=== PATIENT | male | born 1965 | race Two or more races ===

== ENCOUNTER 2023-05-26 23:36 | Inpatient (IN) | payer MEDICAID ==
[~2023-05-26] VITALS: Ht 167.6 cm; Wt 108.2 kg
[2023-05-26] MEDS: ROCURONIUM 10MG/ML 10ML VIAL IV ONE ×2 (23:46→23:47)
[2023-05-26] MEDS: ETOMIDATE (2MG/ML) 20ML VIAL IV ONE (23:46)
[2023-05-26] MEDS: PROPOFOL 100 ML IV ONE (23:48)
[2023-05-26 23:50] VITALS: BP 130/77; PULSE 90; RESP 18; O2SAT 98
[2023-05-26] MEDS: PROPOFOL 100 ML IV SCH (23:50)
[2023-05-27] VITALS (85 sets, daily range): BP systolic 82–122; BP diastolic 39–71; PULSE 72–90; RESP 13–22; TEMP 97.8–99.7; O2SAT 76–100
[2023-05-27] MEDS: fentaNYL CITRATE 5 ML ONE (01:09)
[2023-05-27 01:10] LABS: Alanine Aminotransferase 53 U/L (7-40); Albumin 4.3 g/dL (3.2-4.8); Alkaline Phosphatase 106 U/L (46-116); Anion Gap 11 (5-15); Aspartate Aminotransferase 89 U/L (13-40); BUN/Creatinine Ratio 11.8 (10.0-20.0); Basophils # (auto) 0.1 10 ^3/uL (0-0.2); Basophils % (auto) 0.3 % (0.0-2.0); Bilirubin, Total 0.5 mg/dL (0.2-1.0); Blood Urea Nitrogen 17 mg/dL (9-23); Calcium 9.5 mg/dL (8.7-10.4); Carbon Dioxide 22 mmol/L (20-30); Chloride 106 mmol/L (98-107); Eosinophils # (auto) 0.1 10 ^3/uL (0-0.8); Eosinophils % (auto) 0.2 % (0.0-7.0); Glucose 329 mg/dL (74-106); Hematocrit 46.2 % (41.0-53.0); Hemoglobin 14.9 g/dL (13.5-17.5); Lymphocytes # (auto) 1.3 10 ^3/uL (0.4-5.4); Lymphocytes % (auto) 5.5 % (10.0-50.0); Mean Corpuscular Hemoglobin 30.7 pg (28.0-32.0); Mean Corpuscular Hgb Conc. 32.2 g/dL (32.0-36.0); Mean Corpuscular Volume 95.2 fL (80.0-100.0); Monocytes # (auto) 1.3 10 ^3/uL (0-1.3); Monocytes % (auto) 5.3 % (0.0-12.0); Neutrophils # (auto) 21.1 10 ^3/uL (1.6-8.6); Neutrophils % (auto) 88.7 % (37.0-80.0); Nucleated Red Blood Cells % 0.1 %; Potassium 4.5 mmol/L (3.5-5.1); Red Blood Cells 4.85 10^6/uL (4.5-5.90); Red Cell Distribution Width 13.1 % (11.8-14.3); Sodium 139 mmol/L (136-145); Total Protein 7.1 g/dL (5.7-8.2); White Blood Cell 23.9 10^3/uL (4.4-10.8)
[2023-05-27 01:10] LABS: Urine Bacteria FEW /hpf (None Seen); Urine Blood TRACE /uL (Negative); Urine Clarity Clear (Clear); Urine Color Yellow (Yellow); Urine Hyaline Cast MOD /lpf (0 - 2); Urine Protein, UAD 1+ (Negative); Urine Specific Gravity 1.016 (1.001-1.035); Urine Sperm PRESENT /hpf (None Seen); Urine Urobilinogen Normal (Negative); Urine WBC 4 /hpf (0 - 3); Urine pH 5.5 (5.0-9.0)
[2023-05-27] MEDS: MIDAZOLAM DRIP 50 mg/50mL 50 ML IV ONE (01:10)
[2023-05-27] MEDS: fentaNYL CITRATE 100 MCG/2 ML VL IV ONE (01:10)
[2023-05-27 01:15] LABS: Lactic Acid w/Reflex 4.8 mmol/L (0.4-2.0)
[2023-05-27] MEDS: MIDAZOLAM DRIP 50 mg/50mL 50 ML IV SCH (01:15)
[2023-05-27] MEDS: MIDAZOLAM HCL 2MG/2ML 2ml VIAL (1mg/ml) IV ONE (01:15)
[2023-05-27 01:23] LABS: INR 1.06 (0.9-1.15); Partial Thromboplastin Time 20.8 SEC (24.5-34.5); Prothrombin Time 11.1 sec (9.3-11.8)
[2023-05-27 01:25] LABS: Blood Alcohol < 3.0 mg/dL (<10)
[2023-05-27] MEDS ORDERED: PIPERACILLIN-TAZOB 3.375GM 100 ML IV ONE (01:30)
[2023-05-27 01:44] LABS: Base Excess -6.4 mmol/L (-2.0-2.0)
[2023-05-27 01:44] LABS: Amphetamine Screen, Urine Pos (NEGATIVE); Barbiturate Scree,Urine Neg (NEGATIVE); Benzodiazephine Screen, Urine Neg (NEGATIVE); Cannabinoid Screen, Urine Pos (NEGATIVE); Cocaine Screen, Urine Neg (NEGATIVE); Opiate Scree,Urine Neg (NEGATIVE); Phencyclidine Screen, Urine Neg (NEGATIVE)
[2023-05-27] MEDS: PIPERACILLIN-TAZO 4.5GM 100 ML IV ONE (03:20)
[2023-05-27] MEDS ORDERED: ACETAMINOPHEN 650 MG RECT SUPP PR PRN (04:00)
[2023-05-27] MEDS: SODIUM CHLORIDE 0.9% 1,000 ML IV SCH (04:00)
[2023-05-27] MEDS: ACCU-CHEK COMFORT CURVE STRIP VI SCH (04:00)
[2023-05-27] MEDS ORDERED: ONDANSETRON HCL 4 MG/2 ML VIAL IV PRN (04:00)
[2023-05-27] MEDS ORDERED: NITROGLYCERIN 0.4 MG SL TAB SL PRN (04:00)
[2023-05-27] MEDS ORDERED: DEXTROSE (50%) 50ML SYRG IV PRN (04:00)
[2023-05-27] MEDS: InsuLIN REG 1unit/0.01ml Soln (100units/ml) SC SCH (04:00)
[2023-05-27 05:18] LABS: Basophils # (auto) 0 10 ^3/uL (0-0.2); Basophils % (auto) 0.2 % (0.0-2.0); Eosinophils # (auto) 0 10 ^3/uL (0-0.8); Eosinophils % (auto) 0.1 % (0.0-7.0); Hematocrit 42.4 % (41.0-53.0); Hemoglobin 13.9 g/dL (13.5-17.5); Lymphocytes # (auto) 0.9 10 ^3/uL (0.4-5.4); Lymphocytes % (auto) 5.6 % (10.0-50.0); Mean Corpuscular Hemoglobin 30.5 pg (28.0-32.0); Mean Corpuscular Hgb Conc. 32.8 g/dL (32.0-36.0); Mean Corpuscular Volume 92.9 fL (80.0-100.0); Neutrophils # (auto) 14.1 10 ^3/uL (1.6-8.6); Neutrophils % (auto) 88.1 % (37.0-80.0); Red Blood Cells 4.57 10^6/uL (4.5-5.90); White Blood Cell 16.1 10^3/uL (4.4-10.8)
[2023-05-27 05:39] LABS: Alanine Aminotransferase 49 U/L (7-40); Alkaline Phosphatase 78 U/L (46-116); Anion Gap 6 (5-15); BUN/Creatinine Ratio 21.1 (10.0-20.0); Carbon Dioxide 25 mmol/L (20-30); Chloride 108 mmol/L (98-107); Potassium 4.9 mmol/L (3.5-5.1); Sodium 139 mmol/L (136-145)
[2023-05-27 05:41] LABS: Aspartate Aminotransferase 72 U/L (13-40); Bilirubin, Total 0.6 mg/dL (0.2-1.0); Glucose 151 mg/dL (74-106); Total Protein 6.3 g/dL (5.7-8.2)
[2023-05-27 05:42] LABS: Blood Urea Nitrogen 28 mg/dL (9-23)
[2023-05-27 07:18] LABS: Base Excess -2.9 mmol/L (-2.0-2.0)
[2023-05-27] MEDS: cefTRIAXone 1GM/50ML D5W 50 ML IV SCH (09:30)
[2023-05-27] MEDS: NOREPINEPHRINE 8 MG/250ML KIT 250 ML IV SCH (09:45)
[2023-05-27] MEDS: AZITHROMYCIN 500MG/ 250ML 250 ML IV SCH (09:56)
[2023-05-27] MEDS: HEPARIN SODIUM (PORCINE) 5000 UNITS/ML 1ML VIAL SC SCH (09:58)
[2023-05-27] MEDS ORDERED: CLINIMIX PER PHARMACY 0 ML IV SCH (17:30)
[2023-05-27 18:38] LABS: Magnesium 2.2 mg/dL (1.6-2.6)
[2023-05-27 18:53] LABS: Phosphorus 3.6 mg/dL (2.4-5.1)
[2023-05-27] MEDS: AMINO ACID INFUSION IN D10W 1,000 ML IV SCH (19:50)
[2023-05-28] VITALS (99 sets, daily range): BP systolic 92–129; BP diastolic 48–76; PULSE 62–78; RESP 11–22; TEMP 98.4–100; O2SAT 95–100
[2023-05-28 03:48] LABS: Anion Gap 5 (5-15); Carbon Dioxide 22 mmol/L (20-30); Chloride 112 mmol/L (98-107); Potassium 3.7 mmol/L (3.5-5.1); Sodium 139 mmol/L (136-145)
[2023-05-28 03:49] LABS: Calcium 7.8 mg/dL (8.7-10.4)
[2023-05-28 03:52] LABS: Alkaline Phosphatase 51 U/L (46-116); Basophils # (auto) 0 10 ^3/uL (0-0.2); Basophils % (auto) 0.4 % (0.0-2.0); Eosinophils # (auto) 0.1 10 ^3/uL (0-0.8); Eosinophils % (auto) 0.7 % (0.0-7.0); Hematocrit 37.8 % (41.0-53.0); Hemoglobin 12.4 g/dL (13.5-17.5); Lymphocytes # (auto) 1.3 10 ^3/uL (0.4-5.4); Mean Corpuscular Hgb Conc. 32.8 g/dL (32.0-36.0); Mean Corpuscular Volume 94.7 fL (80.0-100.0); Monocytes # (auto) 0.7 10 ^3/uL (0-1.3); Monocytes % (auto) 6.9 % (0.0-12.0); Neutrophils # (auto) 8.2 10 ^3/uL (1.6-8.6); Red Blood Cells 3.99 10^6/uL (4.5-5.90); White Blood Cell 10.3 10^3/uL (4.4-10.8)
[2023-05-28 03:54] LABS: BUN/Creatinine Ratio 27.3 (10.0-20.0); Blood Urea Nitrogen 21 mg/dL (9-23); Glucose 122 mg/dL (74-106); Magnesium 1.9 mg/dL (1.6-2.6)
[2023-05-28 03:55] LABS: Albumin 3.1 g/dL (3.2-4.8); Aspartate Aminotransferase 23 U/L (13-40)
[2023-05-28 03:56] LABS: Total Protein 5.2 g/dL (5.7-8.2)
[2023-05-28 04:22] LABS: Alanine Aminotransferase 29 U/L (7-40)
[2023-05-28 04:59] LABS: Phosphorus 2.5 mg/dL (2.4-5.1)
[2023-05-28] MEDS: cefTRIAXone 1GM/50ML D5W 50 ML IV SCH (08:47)
[2023-05-28] MEDS ORDERED: HEPARIN DRIP/D5W 100UNITS/ML 250 ML IV SCH (13:15)
[2023-05-28] MEDS: LIDOCAINE 1% (LOCAL ANESTH.) PF 5ml SDV ID ONE (14:20)
[2023-05-28] MEDS: HEPARIN SODIUM (PORCINE) 5000 UNITS/ML 1ML VIAL IV ONE (15:31)
[2023-05-28] MEDS: HEPARIN DRIP/D5W 100UNITS/ML 250 ML IV SCH (15:34)
[2023-05-28 15:57] LABS: Basophils # (auto) 0 10 ^3/uL (0-0.2); Basophils % (auto) 0.3 % (0.0-2.0); Eosinophils # (auto) 0.1 10 ^3/uL (0-0.8); Eosinophils % (auto) 0.7 % (0.0-7.0); Hematocrit 41.2 % (41.0-53.0); Hemoglobin 13.1 g/dL (13.5-17.5); Lymphocytes # (auto) 1.6 10 ^3/uL (0.4-5.4); Mean Corpuscular Hemoglobin 30.4 pg (28.0-32.0); Mean Corpuscular Hgb Conc. 31.7 g/dL (32.0-36.0); Mean Corpuscular Volume 95.8 fL (80.0-100.0); Monocytes # (auto) 0.8 10 ^3/uL (0-1.3); Monocytes % (auto) 7.2 % (0.0-12.0); Neutrophils # (auto) 8.7 10 ^3/uL (1.6-8.6); Neutrophils % (auto) 77.8 % (37.0-80.0); Nucleated Red Blood Cells % 0.1 %; Red Cell Distribution Width 13.3 % (11.8-14.3); White Blood Cell 11.1 10^3/uL (4.4-10.8)
[2023-05-28 16:49] LABS: INR 1.06 (0.9-1.15); Partial Thromboplastin Time 27.4 SEC (24.5-34.5); Prothrombin Time 11.1 sec (9.3-11.8)
[2023-05-28] MEDS: SODIUM CHLOR 0.9% PF (SALINE LOCK) 10ML VIAL/SYR IV SCH (22:00)
[2023-05-28 22:21] LABS: INR 1.09 (0.9-1.15); Prothrombin Time 11.4 sec (9.3-11.8)
[2023-05-28 22:46] LABS: Partial Thromboplastin Time 105.6 SEC (24.5-34.5)
[2023-05-29] VITALS (107 sets, daily range): BP systolic 103–147; BP diastolic 38–89; PULSE 56–105; RESP 11–26; TEMP 97.5–99.3; O2SAT 90–100
[2023-05-29] MEDS: HEPARIN DRIP/D5W 100UNITS/ML 250 ML IV SCH
[2023-05-29 04:28] LABS: Alanine Aminotransferase 22 U/L (7-40); Albumin 3.5 g/dL (3.2-4.8); Alkaline Phosphatase 53 U/L (46-116); Anion Gap 5 (5-15); Aspartate Aminotransferase 14 U/L (13-40); BUN/Creatinine Ratio 38.2 (10.0-20.0); Blood Urea Nitrogen 26 mg/dL (9-23); Calcium 8.6 mg/dL (8.7-10.4); Carbon Dioxide 26 mmol/L (20-30); Chloride 105 mmol/L (98-107); Glucose 124 mg/dL (74-106); Phosphorus 2.4 mg/dL (2.4-5.1); Potassium 3.8 mmol/L (3.5-5.1); Sodium 136 mmol/L (136-145)
[2023-05-29 04:29] LABS: Bilirubin, Total 0.6 mg/dL (0.2-1.0); Total Protein 5.9 g/dL (5.7-8.2)
[2023-05-29 04:46] LABS: Triglycerides 100 mg/dL (< 150)
[2023-05-29 06:55] LABS: INR 1.06 (0.9-1.15); Prothrombin Time 11.1 sec (9.3-11.8)
[2023-05-29 07:57] LABS: Basophils # (auto) 0 10 ^3/uL (0-0.2); Basophils % (auto) 0.4 % (0.0-2.0); Eosinophils # (auto) 0.1 10 ^3/uL (0-0.8); Eosinophils % (auto) 1.3 % (0.0-7.0); Hematocrit 38.2 % (41.0-53.0); Hemoglobin 12.7 g/dL (13.5-17.5); Lymphocytes # (auto) 1.8 10 ^3/uL (0.4-5.4); Lymphocytes % (auto) 17.9 % (10.0-50.0); Mean Corpuscular Hgb Conc. 33.3 g/dL (32.0-36.0); Monocytes # (auto) 0.9 10 ^3/uL (0-1.3); Monocytes % (auto) 8.5 % (0.0-12.0); Neutrophils # (auto) 7.2 10 ^3/uL (1.6-8.6); Neutrophils % (auto) 71.9 % (37.0-80.0); Nucleated Red Blood Cells % 0.1 %; Red Blood Cells 4.11 10^6/uL (4.5-5.90); Red Cell Distribution Width 12.5 % (11.8-14.3)
[2023-05-29 12:40] LABS: INR 1.07 (0.9-1.15); Partial Thromboplastin Time 63.4 SEC (24.5-34.5); Prothrombin Time 11.2 sec (9.3-11.8)
[2023-05-29] MEDS ORDERED: DEXTROSE (50%) 50ML SYRG IV PRN (14:15)
[2023-05-29 14:39] LABS: Base Excess 0.7 mmol/L (-2.0-2.0)
[2023-05-29] MEDS: PANTOPRAZOLE 40 MG/10 ML VIAL INJ IV ONE (15:03)
[2023-05-29] MEDS: PANTOPRAZOLE 40 MG/10 ML VIAL INJ IV SCH (15:05)
[2023-05-29] MEDS: THIAMINE 100mg/ml INJ (200mg/2ml VIAL) IV ONE (15:09)
[2023-05-29] MEDS: fentaNYL Drip 2500mCg/250mlNS 250 ML IV SCH (16:55)
[2023-05-29] MEDS: InsuLIN REG 1unit/0.01ml Soln (100units/ml) SC SCH (17:43)
[2023-05-29] MEDS: ACCU-CHEK COMFORT CURVE STRIP VI SCH (17:43)
[2023-05-29 19:04] LABS: INR 1.05 (0.9-1.15); Partial Thromboplastin Time 56.8 SEC (24.5-34.5)
[2023-05-30] VITALS (108 sets, daily range): BP systolic 97–130; BP diastolic 48–81; PULSE 54–65; RESP 13–24; TEMP 98.2–99.5; O2SAT 78–100
[2023-05-30 03:53] LABS: Basophils # (auto) 0.3 10 ^3/uL (0-0.2); Eosinophils # (auto) 0.1 10 ^3/uL (0-0.8); Eosinophils % (auto) 1.6 % (0.0-7.0); Hematocrit 37.2 % (41.0-53.0); Hemoglobin 12.3 g/dL (13.5-17.5); Lymphocytes # (auto) 2.3 10 ^3/uL (0.4-5.4); Lymphocytes % (auto) 26.3 % (10.0-50.0); Mean Corpuscular Hemoglobin 30.9 pg (28.0-32.0); Mean Corpuscular Hgb Conc. 33.1 g/dL (32.0-36.0); Mean Corpuscular Volume 93.3 fL (80.0-100.0); Monocytes # (auto) 0.8 10 ^3/uL (0-1.3); Monocytes % (auto) 8.8 % (0.0-12.0); Neutrophils # (auto) 5.1 10 ^3/uL (1.6-8.6); Neutrophils % (auto) 59.3 % (37.0-80.0); Nucleated Red Blood Cells % 0.1 %; Red Blood Cells 3.99 10^6/uL (4.5-5.90); Red Cell Distribution Width 12.9 % (11.8-14.3); White Blood Cell 8.6 10^3/uL (4.4-10.8)
[2023-05-30 04:16] LABS: Alanine Aminotransferase 16 U/L (7-40); Albumin 3.4 g/dL (3.2-4.8); Alkaline Phosphatase 50 U/L (46-116); Anion Gap 4 (5-15); Aspartate Aminotransferase 10 U/L (13-40); BUN/Creatinine Ratio 25.8 (10.0-20.0); Blood Urea Nitrogen 17 mg/dL (9-23); Calcium 8.5 mg/dL (8.7-10.4); Carbon Dioxide 27 mmol/L (20-30); Chloride 105 mmol/L (98-107); Glucose 92 mg/dL (74-106); Magnesium 1.9 mg/dL (1.6-2.6); Potassium 3.7 mmol/L (3.5-5.1); Sodium 136 mmol/L (136-145)
[2023-05-30 04:17] LABS: Bilirubin, Total 0.8 mg/dL (0.2-1.0); Total Protein 5.7 g/dL (5.7-8.2)
[2023-05-30 05:04] LABS: Triglycerides 105 mg/dL (< 150)
[2023-05-30 05:05] LABS: LDL Cholesterol 85 mg/dL (< 100)
[2023-05-30 05:06] LABS: Cholesterol 145 mg/dL (< 200); HDL Cholesterol 42 mg/dL (40-59)
[2023-05-30 07:22] LABS: Base Excess -0.9 mmol/L (-2.0-2.0)
[2023-05-30] MEDS: THIAMINE 100mg/ml INJ (200mg/2ml VIAL) IV SCH (10:44)
[2023-05-30] MEDS: MAGNESIUM SULFATE 1GM/100ML 100 ML IV ONE (17:00)
[2023-05-30] MEDS ORDERED: DexmedeTOMIDine 200 MCG in D5W 5% 48 ML IV SCH (18:30)
[2023-05-30 19:14] LABS: INR 1.05 (0.9-1.15); Partial Thromboplastin Time 57.5 SEC (24.5-34.5)
[2023-05-31] VITALS (101 sets, daily range): BP systolic 106–170; BP diastolic 54–89; PULSE 52–89; RESP 11–30; TEMP 98.2–99.5; O2SAT 90–100
[2023-05-31 04:14] LABS: Basophils # (auto) 0.1 10 ^3/uL (0-0.2); Eosinophils # (auto) 0.2 10 ^3/uL (0-0.8); Eosinophils % (auto) 2.2 % (0.0-7.0); Hemoglobin 12.4 g/dL (13.5-17.5); Lymphocytes # (auto) 1.6 10 ^3/uL (0.4-5.4); Lymphocytes % (auto) 20.4 % (10.0-50.0); Mean Corpuscular Hemoglobin 31.8 pg (28.0-32.0); Mean Corpuscular Hgb Conc. 34.6 g/dL (32.0-36.0); Mean Corpuscular Volume 92.1 fL (80.0-100.0); Monocytes # (auto) 0.7 10 ^3/uL (0-1.3); Monocytes % (auto) 9.3 % (0.0-12.0); Neutrophils # (auto) 5.3 10 ^3/uL (1.6-8.6); Neutrophils % (auto) 67.1 % (37.0-80.0); Nucleated Red Blood Cells % 0.1 %; Red Blood Cells 3.91 10^6/uL (4.5-5.90); Red Cell Distribution Width 12.5 % (11.8-14.3); White Blood Cell 7.9 10^3/uL (4.4-10.8)
[2023-05-31 04:15] LABS: Anion Gap 5 (5-15); Calcium 8.6 mg/dL (8.7-10.4); Carbon Dioxide 25 mmol/L (20-30); Chloride 105 mmol/L (98-107); Potassium 3.8 mmol/L (3.5-5.1); Sodium 135 mmol/L (136-145)
[2023-05-31 04:21] LABS: BUN/Creatinine Ratio 24.6 (10.0-20.0); Blood Urea Nitrogen 15 mg/dL (9-23); Glucose 84 mg/dL (74-106); Magnesium 1.9 mg/dL (1.6-2.6)
[2023-05-31 04:23] LABS: INR 1.08 (0.9-1.15); Partial Thromboplastin Time 49.5 SEC (24.5-34.5); Prothrombin Time 11.3 sec (9.3-11.8)
[2023-05-31 06:07] LABS: CRP High Sensitivity 4.03 mg/dL (<1.0)
[2023-05-31 07:10] LABS: Base Excess -3.2 mmol/L (-2.0-2.0)
[2023-05-31] MEDS: cefTRIAXone 1GM/50ML D5W 50 ML IV ONE (12:37)
[2023-05-31] MEDS ORDERED: LABETALOL HCL 5 MG/ML 4ML SYRINGE IV PRN (14:30)
[2023-06-01] VITALS (91 sets, daily range): BP systolic 109–190; BP diastolic 59–96; PULSE 51–99; RESP 0–33; TEMP 97.5–99; O2SAT 86–100
[2023-06-01 04:00] LABS: Basophils # (auto) 0.1 10 ^3/uL (0-0.2); Basophils % (auto) 0.9 % (0.0-2.0); Eosinophils # (auto) 0.2 10 ^3/uL (0-0.8); Eosinophils % (auto) 2.3 % (0.0-7.0); Hematocrit 36.7 % (41.0-53.0); Hemoglobin 12.7 g/dL (13.5-17.5); Lymphocytes # (auto) 1.4 10 ^3/uL (0.4-5.4); Lymphocytes % (auto) 17.8 % (10.0-50.0); Mean Corpuscular Hemoglobin 31.2 pg (28.0-32.0); Mean Corpuscular Hgb Conc. 34.5 g/dL (32.0-36.0); Mean Corpuscular Volume 90.4 fL (80.0-100.0); Monocytes # (auto) 0.9 10 ^3/uL (0-1.3); Monocytes % (auto) 10.6 % (0.0-12.0); Neutrophils # (auto) 5.6 10 ^3/uL (1.6-8.6); Neutrophils % (auto) 68.4 % (37.0-80.0); Red Blood Cells 4.06 10^6/uL (4.5-5.90); Red Cell Distribution Width 12.3 % (11.8-14.3); White Blood Cell 8.1 10^3/uL (4.4-10.8)
[2023-06-01 04:11] LABS: Alanine Aminotransferase 14 U/L (7-40); Alkaline Phosphatase 56 U/L (46-116); Anion Gap 6 (5-15); BUN/Creatinine Ratio 26.2 (10.0-20.0); Blood Urea Nitrogen 16 mg/dL (9-23); Calcium 9.1 mg/dL (8.7-10.4); Carbon Dioxide 25 mmol/L (20-30); Chloride 104 mmol/L (98-107); Glucose 115 mg/dL (74-106); Magnesium 1.9 mg/dL (1.6-2.6); Potassium 3.9 mmol/L (3.5-5.1); Sodium 135 mmol/L (136-145)
[2023-06-01 04:12] LABS: Albumin 3.7 g/dL (3.2-4.8); Aspartate Aminotransferase 14 U/L (13-40)
[2023-06-01 04:13] LABS: Bilirubin, Total 0.8 mg/dL (0.2-1.0); Total Protein 6.1 g/dL (5.7-8.2)
[2023-06-01 04:31] LABS: INR 1.11 (0.9-1.15); Partial Thromboplastin Time 45.3 SEC (24.5-34.5); Prothrombin Time 11.6 sec (9.3-11.8)
[2023-06-01] MEDS ORDERED: HEPARIN DRIP/D5W 100UNITS/ML 250 ML IV SCH (05:00)
[2023-06-01 07:58] LABS: Base Excess -0.5 mmol/L (-2.0-2.0)
[2023-06-01] MEDS: cefTRIAXone 2GM/50ML D5W 50 ML IV SCH (09:51)
[2023-06-01 10:42] LABS: Base Excess -0.8 mmol/L (-2.0-2.0)
[2023-06-01 12:26] LABS: INR 1.14 (0.9-1.15); Partial Thromboplastin Time 37.9 SEC (24.5-34.5); Prothrombin Time 11.9 sec (9.3-11.8)
[2023-06-01] MEDS: FUROSEMIDE 20 MG/2 ML VIAL IV ONE (13:31)
[2023-06-01] MEDS: HEPARIN DRIP/D5W 100UNITS/ML 250 ML IV SCH (13:45)
[2023-06-01] MEDS: HALOPERIDOL LACTATE 5 MG/ML INJ VIAL IM PRN (15:07)
[2023-06-01] MEDS: hydrALAZINE HCL 20 MG/ML VL IV PRN (15:56)
[2023-06-01] MEDS: ENALAPRILAT 1.25 MG/ML-1ML VIAL IV PRN (18:06)
[2023-06-01 21:25] LABS: INR 1.14 (0.9-1.15); Partial Thromboplastin Time 51.4 SEC (24.5-34.5); Prothrombin Time 11.9 sec (9.3-11.8)
[2023-06-01] MEDS: LABETALOL HCL 5 MG/ML 4ML SYRINGE IV PRN (22:26)
[2023-06-02] VITALS (46 sets, daily range): BP systolic 135–181; BP diastolic 50–146; PULSE 57–92; RESP 11–36; TEMP 97.8–98.7; O2SAT 86–100
[2023-06-02] MEDS: MORPHINE SULFATE INJ 2 MG/ml SYRG IV PRN ×2 (01:44→09:44)
[2023-06-02 04:25] LABS: Basophils # (auto) 0.1 10 ^3/uL (0-0.2); Basophils % (auto) 0.5 % (0.0-2.0); Eosinophils # (auto) 0.1 10 ^3/uL (0-0.8); Eosinophils % (auto) 0.9 % (0.0-7.0); Hematocrit 38.1 % (41.0-53.0); Hemoglobin 12.9 g/dL (13.5-17.5); Lymphocytes # (auto) 1.3 10 ^3/uL (0.4-5.4); Lymphocytes % (auto) 11.5 % (10.0-50.0); Mean Corpuscular Hemoglobin 30.3 pg (28.0-32.0); Mean Corpuscular Hgb Conc. 33.9 g/dL (32.0-36.0); Mean Corpuscular Volume 89.5 fL (80.0-100.0); Monocytes % (auto) 8.7 % (0.0-12.0); Neutrophils # (auto) 8.9 10 ^3/uL (1.6-8.6); Neutrophils % (auto) 78.4 % (37.0-80.0); Red Blood Cells 4.26 10^6/uL (4.5-5.90); Red Cell Distribution Width 12.3 % (11.8-14.3); White Blood Cell 11.3 10^3/uL (4.4-10.8)
[2023-06-02 04:40] LABS: Alanine Aminotransferase 12 U/L (7-40); Alkaline Phosphatase 61 U/L (46-116); Anion Gap 10 (5-15); Aspartate Aminotransferase 31 U/L (13-40); Bilirubin, Total 0.8 mg/dL (0.2-1.0); Blood Urea Nitrogen 13 mg/dL (9-23); Carbon Dioxide 25 mmol/L (20-30); Chloride 102 mmol/L (98-107); Glucose 108 mg/dL (74-106); Potassium 3.5 mmol/L (3.5-5.1); Sodium 137 mmol/L (136-145)
[2023-06-02 04:41] LABS: Total Protein 6.1 g/dL (5.7-8.2)
[2023-06-02 05:26] LABS: INR 1.14 (0.9-1.15); Partial Thromboplastin Time 53.8 SEC (24.5-34.5); Prothrombin Time 11.9 sec (9.3-11.8)
[2023-06-02] MEDS: FUROSEMIDE 40 MG/4 ML VIAL IV ONE (09:42)
[2023-06-02 09:59] LABS: INR 1.15 (0.9-1.15); Partial Thromboplastin Time 54.8 SEC (24.5-34.5)
[2023-06-02] MEDS: POTASSIUM CHLORIDE 40 MEQ, LIDOCAINE 1% (LOCAL ANESTH.) 4 ML in SODIUM CHL 0.9% 250 ML IV ONE (10:30)
[2023-06-02] MEDS: ALBUTEROL SULF 2.5 MG/0.5ML(0.5%) NEB SOLN NEB SCH (11:35)
[2023-06-02] MEDS: IPRATROPIUM BROM 0.5 MG/2.5ML INH SOL NEB SCH (11:35)
[2023-06-02] MEDS ORDERED: ENOXAPARIN SOD 100 MG/1 ML SYRINGE SC SCH (22:00)
[2023-06-02] MEDS: ENOXAPARIN SOD 120 MG/0.8 ML SYRINGE SC SCH (22:16)
[2023-06-03] VITALS (23 sets, daily range): BP systolic 139–167; BP diastolic 57–97; PULSE 59–94; RESP 7–33; TEMP 97.8–98.6; O2SAT 89–100
[2023-06-03 05:03] LABS: Basophils # (auto) 0.1 10 ^3/uL (0-0.2); Basophils % (auto) 1.3 % (0.0-2.0); Eosinophils # (auto) 0.2 10 ^3/uL (0-0.8); Eosinophils % (auto) 2.2 % (0.0-7.0); Hematocrit 41.7 % (41.0-53.0); Hemoglobin 14.2 g/dL (13.5-17.5); Lymphocytes # (auto) 1.8 10 ^3/uL (0.4-5.4); Lymphocytes % (auto) 16.2 % (10.0-50.0); Mean Corpuscular Hemoglobin 30.5 pg (28.0-32.0); Mean Corpuscular Hgb Conc. 34.1 g/dL (32.0-36.0); Mean Corpuscular Volume 89.6 fL (80.0-100.0); Monocytes # (auto) 1.2 10 ^3/uL (0-1.3); Monocytes % (auto) 10.4 % (0.0-12.0); Neutrophils # (auto) 7.8 10 ^3/uL (1.6-8.6); Neutrophils % (auto) 69.9 % (37.0-80.0); Nucleated Red Blood Cells % 0.1 %; Red Blood Cells 4.65 10^6/uL (4.5-5.90); Red Cell Distribution Width 12.2 % (11.8-14.3); White Blood Cell 11.1 10^3/uL (4.4-10.8)
[2023-06-03 05:19] LABS: Calcium 9.2 mg/dL (8.7-10.4); Chloride 104 mmol/L (98-107); Potassium 3.4 mmol/L (3.5-5.1); Sodium 138 mmol/L (136-145)
[2023-06-03 05:20] LABS: Anion Gap 7 (5-15); Carbon Dioxide 27 mmol/L (20-30)
[2023-06-03 05:25] LABS: BUN/Creatinine Ratio 21.3 (10.0-20.0); Blood Urea Nitrogen 17 mg/dL (9-23); Glucose 141 mg/dL (74-106)
[2023-06-03] MEDS: POTASSIUM CHL 20MEQ/100ML 100 ML IV SCH (11:45)
[2023-06-03] MEDS: guaiFENesin-DM 100/10mg/5ml SYR PO PRN (11:45)
[2023-06-03] MEDS: FUROSEMIDE 40 MG/4 ML VIAL IV SCH (13:03)
[2023-06-04] VITALS (24 sets, daily range): BP systolic 130–182; BP diastolic 57–93; PULSE 51–101; RESP 14–23; TEMP 97.1–98.4; O2SAT 91–100
[2023-06-04 05:34] LABS: Basophils # (auto) 0.1 10 ^3/uL (0-0.2); Eosinophils # (auto) 0.4 10 ^3/uL (0-0.8); Hematocrit 38.8 % (41.0-53.0); Hemoglobin 13.3 g/dL (13.5-17.5); Lymphocytes # (auto) 2.6 10 ^3/uL (0.4-5.4); Lymphocytes % (auto) 25.4 % (10.0-50.0); Mean Corpuscular Hemoglobin 30.9 pg (28.0-32.0); Mean Corpuscular Hgb Conc. 34.4 g/dL (32.0-36.0); Mean Corpuscular Volume 89.9 fL (80.0-100.0); Monocytes # (auto) 1.1 10 ^3/uL (0-1.3); Monocytes % (auto) 10.8 % (0.0-12.0); Neutrophils # (auto) 6.1 10 ^3/uL (1.6-8.6); Neutrophils % (auto) 58.8 % (37.0-80.0); Nucleated Red Blood Cells % 0.2 %; Red Blood Cells 4.32 10^6/uL (4.5-5.90); Red Cell Distribution Width 12.4 % (11.8-14.3); White Blood Cell 10.3 10^3/uL (4.4-10.8)
[2023-06-04 05:43] LABS: Calcium 8.4 mg/dL (8.5-10.1); Chloride 105 mmol/L (98-107); Potassium 3.5 mmol/L (3.5-5.1); Sodium 139 mmol/L (136-145)
[2023-06-04 05:44] LABS: Anion Gap 9 (5-15); Carbon Dioxide 25 mmol/L (20-30)
[2023-06-04 05:49] LABS: BUN/Creatinine Ratio 20.6 (10.0-20.0); Blood Urea Nitrogen 13 mg/dL (9-23); Glucose 83 mg/dL (74-106)
[2023-06-05] VITALS (15 sets, daily range): BP systolic 105–156; BP diastolic 60–81; PULSE 56–84; RESP 16–20; TEMP 36.2; O2SAT 90–99
[2023-06-05 07:21] LABS: Basophils # (auto) 0.1 10 ^3/uL (0-0.2); Basophils % (auto) 0.9 % (0.0-2.0); Eosinophils # (auto) 0.4 10 ^3/uL (0-0.8); Eosinophils % (auto) 3.7 % (0.0-7.0); Hematocrit 41.7 % (41.0-53.0); Hemoglobin 14.1 g/dL (13.5-17.5); Lymphocytes # (auto) 2.5 10 ^3/uL (0.4-5.4); Lymphocytes % (auto) 26.7 % (10.0-50.0); Mean Corpuscular Hemoglobin 30.5 pg (28.0-32.0); Mean Corpuscular Hgb Conc. 33.7 g/dL (32.0-36.0); Mean Corpuscular Volume 90.6 fL (80.0-100.0); Monocytes % (auto) 10.9 % (0.0-12.0); Neutrophils # (auto) 5.5 10 ^3/uL (1.6-8.6); Neutrophils % (auto) 57.8 % (37.0-80.0); Nucleated Red Blood Cells % 0.1 %; Red Cell Distribution Width 12.3 % (11.8-14.3); White Blood Cell 9.5 10^3/uL (4.4-10.8)
[2023-06-05 07:35] LABS: Chloride 100 mmol/L (98-107); Potassium 3.9 mmol/L (3.5-5.1); Sodium 136 mmol/L (136-145)
[2023-06-05 07:36] LABS: Anion Gap 10 (5-15); Calcium 9.5 mg/dL (8.5-10.1); Carbon Dioxide 26 mmol/L (20-30)
[2023-06-05 07:41] LABS: BUN/Creatinine Ratio 18.8 (10.0-20.0); Blood Urea Nitrogen 13 mg/dL (9-23); Glucose 88 mg/dL (74-106)
[2023-06-05] MEDS ORDERED: MORPHINE SULFATE INJ 2 MG/ml SYRG IV PRN (09:30)
[2023-06-05] MEDS ORDERED: APIX5TAB PO ×2 (13:49→16:36)
[2023-06-05] MEDS ORDERED: METF-370 PO ×2 (13:49→16:36)
[2023-06-05] MEDS ORDERED: LISI-275 PO ×2 (13:49→16:36)
[2023-06-05] MEDS ORDERED: APIXABAN 5 MG TAB PO SCH (22:00)
== END 2023-06-05 18:15 | disposition home or self-care (01) | DRG 130 ==
LOC: ER 23:36 → EDBD 23:36 → OVERFLOW 05-27 03:57 → ICU WEST 05-27 04:13 → DOU IN ICU 06-02 12:15 → TELE-CENTR 06-04 14:00
PROVIDERS: ADMIT Internal Medicine; ATTEND Internal Medicine
PROC: 5A1955Z Respiratory Ventilation, Greater than 96 Consecutive Hours (ICD-10-PCS; principal; 2023-05-27)
PROC: 0BH17EZ Insertion of Endotracheal Airway into Trachea, Via Natural or Artificial Opening (ICD-10-PCS; 2023-05-27)
PROC: 02HV33Z Insertion of Infusion Device into Superior Vena Cava, Percutaneous Approach (ICD-10-PCS; 2023-05-27)
PROC: B548ZZA Ultrasonography of Superior Vena Cava, Guidance (ICD-10-PCS; 2023-05-27)
DX: I26.92 Saddle embolus of pulmonary artery without acute cor pulmonale (principal); N17.0 Acute kidney failure with tubular necrosis; R65.21 Severe sepsis with septic shock; A41.9 Sepsis, unspecified organism; J15.69 Pneumonia due to other Gram-negative bacteria; G92.8 Other toxic encephalopathy; J96.01 Acute respiratory failure with hypoxia; J15.9 Unspecified bacterial pneumonia; E87.20 Acidosis, unspecified; T40.411A Poisoning by fentanyl or fentanyl analogs, accidental (unintentional), initial encounter; I21.A1 Myocardial infarction type 2; T43.621A Poisoning by amphetamines, accidental (unintentional), initial encounter; E11.65 Type 2 diabetes mellitus with hyperglycemia; E83.51 Hypocalcemia; D64.9 Anemia, unspecified; E66.9 Obesity, unspecified; R74.01 Elevation of levels of liver transaminase levels; I10 Essential (primary) hypertension; F10.239 Alcohol dependence with withdrawal, unspecified; Y90.9 Presence of alcohol in blood, level not specified; Z68.38 Body mass index [BMI] 38.0-38.9, adult
CPT/HCPCS: 36415; 36569; 36600; 70450; 71045; 71275; 80048; 80053; 80061; 80307; 80320; 81001; 82140; 82805; 82962; 83036; 83605; 83735; 83880; 84100; 84443; 84478; 84484; 85025; 85379; 85610; 85730; 86141; 87040; 87070; 87077; 87081; 87086; 87186; 87205; 92610; 93005; 93306; 93970; 94002; 94003; 94640; 97110; 97116; 97163; 97530; C9113; G0378; J1815; J2001; J2250; J2543; J2704; J3480; J3490; J7060